=== PATIENT | female | born 1980 | race Caucasian/White ===

== ENCOUNTER 2016-09-24 21:15 | Emergency (ER) | payer MEDICAID ==
[~2016-09-24] VITALS: Ht 167.6 cm; Wt 54.4 kg
[2016-09-24 21:25] VITALS: BP 159/77; PULSE 84; RESP 18; TEMP 98; O2SAT 100
[2016-09-24] MEDS ORDERED: LIDOCAINE 1% 10 MG/ML, 20 ML MDV INJ ONE (21:30)
[2016-09-24] MEDS ORDERED: BACITRACIN 1 GM OINT TP ONE (21:30)
[2016-09-24] MEDS ORDERED: IBUPROFEN 800 MG TABLET PO ONE (21:30)
[2016-09-24 22:32] VITALS: BP 132/79; PULSE 81; RESP 18; TEMP 98.2; O2SAT 100
== END 2016-09-24 22:32 | disposition home or self-care (01) ==
LOC: SED 21:15
DX: S62.612A Displaced fracture of proximal phalanx of right middle finger, initial encounter for closed fracture (principal); S61.212A Laceration without foreign body of right middle finger without damage to nail, initial encounter; Z88.2 Allergy status to sulfonamides; Z88.1 Allergy status to other antibiotic agents; X58.XXXA Exposure to other specified factors, initial encounter; Y93.89 Activity, other specified; Y92.89 Other specified places as the place of occurrence of the external cause; Y99.8 Other external cause status
CPT/HCPCS: 12002; 29130; 73140; 99284; J2001